=== PATIENT | female | born 1975 | race Caucasian/White ===

== ENCOUNTER 2025-05-02 09:54 | Emergency (ER) | payer MEDICARE, MEDICAID, SELFPAY ==
--- OUTSIDE RECORDS SUMMARY | 2025-04-30 11:35 | XMS_ITS | Encounter Summary ---
Author Organization [facility] Address [address] [place] [address] Care Team Providers Care Family Service Worker Name Role Phone Unavailable Primary Care Provider Unavailabl e Encounter Details Date Type Department Care Team (Late st Contact Info) Description 04/30/2025 11:35 AM EDT Lab Draw Station - [address] [place] [address] Screening for human immunodeficiency virus (Primary Dx); Posttraumatic stress disorder; History of cocaine dependence (CMS/HCC V24, CMS/HCC V28); Narcotic dependence, in remission (CMS/HCC V24, CMS/HCC V28); Abnormal results of liver function studies Social History Tobacco Use Types Packs/Day Years Used Date Smoking Tobacco: Never Assessed Comments Unknown Sex and Gender Information Value Date Recorded Sex Assigned at Female 04/30/2025 11:35 AM EDT Legal Sex Female 11:32 AM EDT Gender Identity Female 04/30/2025 11:35 AM EDT Sexual Orientation Lesbian or [place] 04/30/2025 11 :35 AM EDT documented as of this encounter Plan of Treatment Not on file documented as of this encounter Procedures Procedure Name Priority Date/Time Associated Diagnosis Comments BILIRUBIN DUPLICATE PROCEDURE TO ORDER Routine 04/30/2025 11:52 AM EDT Screening for human immunodeficiency virus Posttraumatic stress disorder History of cocaine dependence (CMS/HCC V24, CMS/HCC V28) Narcotic dependence, in remission (CMS/HCC V24, CMS/HCC V28) Abnormal results of liver function studies HIV 1, 2 ANTIBODY, P24 ANTIGEN WITH REFLEX TO DIFFERENTIATION Routine 04/30/2025 11:52 AM EDT Screening for human immunodeficiency virus Posttraumatic stress disorder History of cocaine dependence (CMS/HCC V24, CMS/HCC V28) Narcotic dependence, in remission (CMS/HCC V24, CMS/HCC V28) AST, ALT, BILIRUBIN ELR STATE REPORTABLES Routine 04/30/2025 11:52 AM EDT Screening for human immunodeficiency virus Posttraumatic stress disorder History of cocaine dependence (CMS/HCC V24, CMS/HCC V28) Narcotic dependence, in remission (CMS/HCC V24, CMS/HCC V28) Abnormal results of liver function studies THYROID STIMULATING HORMONE WITH REFLEX TO FREE T4 AND FREE T3 Routine 04/30/2025 11:52 AM EDT Screening for human immunodeficiency virus Posttraumatic stress disorder History of cocaine dependence (CMS/HCC V24, CMS/HCC V28) Narcotic dependence, in remission (CMS/HCC V24, CMS/HCC V28) FREE THYROXINE WITH REFLEX TO FREE TRIIODOTHYRONINE Routine 04/30/2025 11:52 AM EDT Screening for human immunodeficiency virus Posttraumatic stress disorder History of cocaine dependence (CMS/HCC V24, CMS/HCC V28) Narcotic dependence, in remission (CMS/HCC V24, CMS/HCC V28) HEPATITIS PANEL, ACUTE WITH REFLEX TO CONFIRMATION Routine 04/30/2025 11:52 AM EDT Screening for human immunodeficiency virus Posttraumatic stress disorder History of cocaine dependence (CMS/HCC V24, CMS/HCC V28) Narcotic dependence, in remission (CMS/HCC V24, CMS/HCC V28) Abnormal results of liver function studies COMPLETE BLOOD COUNT Routine 04/30/2025 11:52 AM EDT Screening for human immunodeficiency virus Posttraumatic stress disorder History of cocaine dependence (CMS/HCC V24, CMS/HCC V28) Narcotic dependence, in remission (CMS/HCC V24, CMS/HCC V28) TRIIODOTHYRONINE FREE Routine 04/30/2025 11:52 AM EDT Screening for human immunodeficiency virus Posttraumatic stress disorder History of cocaine dependence (CMS/HCC V24, CMS/HCC V28) Narcotic dependence, in remission (CMS/HCC V24, CMS/HCC V28) COMPREHENSIVE METABOLIC PANEL Routine 04/30/2025 11:52 AM EDT Screening for human immunodeficiency virus Posttraumatic stress disorder History of cocaine dependence (CMS/HCC V24, [facility] V28) Narcotic dependence, in remission ([facility] V24, [facility] V28) documented in this encounter Results * AST, ALT, Bilirubin ELR state reportables (04/30/2025 11:52 AM EDT) ALT (SGPT) 57 10 - 60 unit/L LAB CHEMISTRY METHOD 04/30/2025 9:49 PM EDT [facility] AST (SGOT) 36 10 - 42 unit/L LAB CHEMISTRY METHOD 04/30/2025 9:49 PM EDT [facility] Bilirubin, Direct 0.1 0.0 - 0.3 mg/dL LAB CHEMISTRY METHOD 04/30/2025 9:49 PM EDT [facility] Total Bilirubin 0.3 0.0 - 1.4 mg/dL LAB CHEMISTRY METHOD 04/30/2025 9:49 PM EDT [facility] Platelets 300 K/mcL LAB HEMETOLOGY METHOD 04/30/2025 9:49 PM EDT [facility] Blood Venous blood specimen / Unknown Venipuncture / Unknown 04/30/2025 11:52 AM EDT 04/30/2025 11:52 AM EDT us Trudi LOUISE LAB BLOOD ORDERABLES Final Resu lt [facility] [address] [place] [address], * Triiodothyronine free (04/30/2025 11:52 AM EDT) T3, Free 246 230 - 420 pcg/dL LAB CHEMISTRY METHOD 04/30/2025 10:02 PM EDT [facility] Blood Venous blood specimen / Unknown Venipuncture / Unknown 04/30/2025 11:52 AM EDT 04/30/2025 11:52 AM EDT Trudi LOUISE LAB BLOOD ORDERABLES Final Resu lt Performing Organization Address [facility]/ZIP Co de Phone Number [facility] [address] [place] [address], [place] [phone] * Free thyroxine with reflex to free triiodothyronine (04/30/2025 11:52 AM EDT) Pathologist [facility] Free T4 1.01 0.70 - 1.80 ng/dL LAB CHEMISTRY METHOD 04/30/2025 8:44 PM EDT [facility] Blood Venous blood specimen / Unknown Venipuncture / Unknown 04/30/2025 11:52 AM EDT 04/30/2025 11:52 AM EDT us Trudi LOUISE LAB BLOOD ORDERABLES Final Resu lt Performing Organization Address City/[facility] de Phone Number [facility] [address] [place] [address], [place] [phone] * Bilirubin duplicate procedure to order (04/30/2025 11:52 AM EDT) [facility] Total Bilirubin 0.3 0.0 - 1.4 mg/dL LAB CHEMISTRY METHOD 04/30/2025 7:57 PM EDT [facility] Bilirubin, Direct 0.1 0.0 - 0.3 mg/dL LAB CHEMISTRY METHOD 04/30/2025 7:57 PM EDT [facility] Bilirubin, Indirect 0.2 0.0 - 1.1 mg/dL LAB CHEMISTRY METHOD 04/30/2025 7:57 PM EDT [facility] Blood Venous blood specimen / Unknown Venipuncture / Unknown 04/30/2025 11:52 AM EDT 04/30/2025 11:52 AM EDT us Trudi LOUISE LAB BLOOD ORDERABLES Final Resu lt Performing Organization Address [facility]/ZIP Co de Phone Number [facility] [address] [place] [address], [place] [phone] * HIV 1,2 antibody, p24 antigen with reflex to differentiation (04/30/2025 11:52 AM EDT) [facility] HIV Combo AB/AG Negative Negative LAB CHEMISTRY METHOD 04/30/2025 5:21 PM EDT [facility] Blood Venous blood specimen / Unknown Venipuncture / Unknown 04/30/2025 11:52 AM EDT 04/30/2025 11:52 AM EDT Narrative [facility] - 04/30/2025 5:21 PM EDT This assay is a 4th generation assay allowing for earlier detection of HIV infection by detecting the presence of the HIV-1 p24 antigen as well as the traditional antibodies to HIV type 1 (including group O) and type 2. Use of a 4th generation assay is the current CDC recommendation for HIV screening. Trudi LOUISE LAB BLOOD ORDERABLES Final Resu lt Performing Organization Address [facility]/ZIP Co de Phone Number [facility] [address] [place] [address], [place] [phone] * (ABNORMAL) Complete blood count (04/30/2025 11:52 AM EDT) [facility] WBC 8.7 4.8 - 10.8 K/mcL LAB HEMETOLOGY METHOD 04/30/2025 2:17 PM EDT [facility] RBC 4.70 3.80 - 4.80 M/mcL LAB HEMETOLOGY METHOD 04/30/2025 2:17 PM EDT [facility] Hemoglobin 11.7 11.5 - 16.0 g/dL LAB HEMETOLOGY METHOD 04/30/2025 2:17 PM EDT [facility] Hematocrit 37.4 35.0 - 47.0 % LAB HEMETOLOGY METHOD 04/30/2025 2:17 PM EDT [facility] MCV 79.9 79.0 - 98.0 FL LAB HEMETOLOGY METHOD 04/30/2025 2:17 PM EDT [facility] MCH 25.0(L) 27.0 - 32.0 pcg LAB HEMETOLOGY METHOD 04/30/2025 2:17 PM EDT [facility] MCHC 31.3(L) 32.0 - 37.0 g/dL LAB HEMETOLOGY METHOD 04/30/2025 2:17 PM EDT [facility] RDW 15.4(H) 11.0 - 15.0 % LAB HEMETOLOGY METHOD 04/30/2025 2:17 PM EDT [facility] Platelets 300 130 - 400 K/mcL LAB HEMETOLOGY METHOD 04/30/2025 2:17 PM EDT [facility] MPV 10.2 7.0 - 11.0 FL LAB HEMETOLOGY METHOD 04/30/2025 2:17 PM EDT [facility] NRBC 0.0 <1.0 % LAB HEMETOLOGY METHOD 04/30/2025 2:17 PM EDT [facility] NRBC Absolute 0.00 <0.10 K/mcL LAB HEMETOLOGY METHOD 04/30/2025 2:17 PM EDT [facility] Blood Venous blood specimen / Unknown Venipuncture / Unknown 04/30/2025 11:52 AM EDT 04/30/2025 11:52 AM EDT us Trudi LOUISE LAB BLOOD ORDERABLES Final Resu lt [facility] [address] [place] [address], * (ABNORMAL) Thyroid stimulating hormone with reflex to free t4 and free t3 (04/30/2025 11:52 AM EDT) Pathologist [facility] TSH 4.06(H) 0.40 - 4.00 mcIU/mL LAB CHEMISTRY METHOD 04/30/2025 4:42 PM EDT [facility] Blood Venous blood specimen / Unknown Venipuncture / Unknown 04/30/2025 11:52 AM EDT 04/30/2025 11:52 AM EDT Trudi LOUISE LAB BLOOD ORDERABLES Final Resu lt Performing Organization Address City/[facility]/ZIP Co de Phone Number [facility] [address] [place] [address], [place] [phone] * (ABNORMAL) Hepatitis panel, acute with reflex to confirmation (04/30/2025 11:52 AM EDT) [facility] Hepatitis B Surface Ag Negative Negative LAB CHEMISTRY METHOD 04/30/2025 9:25 PM EDT [facility] Hepatitis A Antibody IgM Negative Negative LAB CHEMISTRY METHOD 04/30/2025 9:25 PM EDT [facility] Hep B Core IgM Negative Negative LAB CHEMISTRY METHOD 04/30/2025 9:25 PM EDT [facility] Hepatitis C Antibody Positive(A) Negative LAB CHEMISTRY METHOD 04/30/2025 9:25 PM EDT [facility] Comment:If confirmation of t his positive HCV Ab screening test is needed, please redraw and order HCV Viral Load. Note--> This test may not be added on due to different specimen requirements. Blood Venous blood specimen / Unknown Venipuncture / Unknown 04/30/2025 11:52 AM EDT 04/30/2025 11:52 AM EDT us Trudi LOUISE LAB BLOOD ORDERABLES Final Resu lt [facility] [address] [place] [address], [place] [phone] * (ABNORMAL) Comprehensive metabolic panel (04/30/2025 11:52 AM EDT) [facility] Signature Sodium 140 133 - 145 mmol/L LAB CHEMISTRY METHOD 04/30/2025 7:59 PM [facility] Potassium 4.8 3.5 - 5.5 mmol/L LAB CHEMISTRY METHOD 04/30/2025 7:59 PM [facility] Chloride 104 96 - 110 mmol/L LAB CHEMISTRY METHOD 04/30/2025 7:59 PM [facility] CO2 30 21 - 32 mmol/L LAB CHEMISTRY METHOD 04/30/2025 7:59 PM [facility] Anion Gap 6 3 - 11 LAB CHEMISTRY METHOD 04/30/2025 7:59 PM [facility] Glucose 110(H) 70 - 100 mg/dL LAB CHEMISTRY METHOD 04/30/2025 7:59 PM [facility] BUN 16 5 - 25 mg/dL LAB CHEMISTRY METHOD 04/30/2025 7:59 PM [facility] Creatinine 1.06 0.50 - 1.10 mg/dL LAB CHEMISTRY METHOD 04/30/2025 7:59 PM [facility] eGFR 65 >=60 mL/min/1. 73m2 LAB CHEMISTRY METHOD 04/30/2025 7:59 PM [facility] Comment:Calculation based on the Chronic Kidney Disease Epidemiology Collaboration (CKD-EPI) equation refit without adjustment for race. BUN/Creatinine Ratio 15.1 LAB CHEMISTRY METHOD 04/30/2025 7:59 PM [facility] Calcium 9.1 8.5 - 10.5 mg/dL LAB CHEMISTRY METHOD 04/30/2025 7:59 PM [facility] AST (SGOT) 36 10 - 42 unit/L LAB CHEMISTRY METHOD 04/30/2025 7:59 PM [facility] ALT (SGPT) 57 10 - 60 unit/L LAB CHEMISTRY METHOD 04/30/2025 7:59 PM EDT [facility] Alkaline Phosphatase 116 42 - 121 unit/L LAB CHEMISTRY METHOD 04/30/2025 7:59 PM EDT [facility] Total Protein 7.4 6.0 - 8.0 g/dL LAB CHEMISTRY METHOD 04/30/2025 7:59 PM EDT [facility] Albumin 3.6 3.2 - 5.0 g/dL LAB CHEMISTRY METHOD 04/30/2025 7:59 PM EDT [facility] Total Bilirubin 0.3 0.0 - 1.4 mg/dL LAB CHEMISTRY METHOD 04/30/2025 7:59 PM EDT [facility] Blood Venous blood specimen / Unknown Venipuncture / Unknown 04/30/2025 11:52 AM EDT 04/30/2025 11:52 AM EDT us Trudi LOUISE LAB BLOOD ORDERABLES Final Resu lt [facility] [address] [place] [address], documented in this encounter Visit Diagnoses Diagnosis Screening for human immunodeficiency virus- Primary Special screening examination for other specified viral diseases Posttraumatic stress disorder History of cocaine dependence (CMS/HCC V24, CMS/HCC V28) Narcotic dependence, in remission (CMS/HCC V24, CMS/HCC V28) Unspecified drug dependence, in remission Abnormal results of liver function studies Nonspecific abnormal results of liver function study documented in this encounter Orders Lab Orders Without Results Count Last Ordered D ate First Ordered Date HEPATIC FUNCTION PANEL 1 04/30/2025 documented in this encounter
--- NOTE | 2025-05-02 | ECG_ITS ---
Test Reason : etremity swelling Blood Pressure : */* mmHG Vent. Rate : 104 BPM Atrial Rate : 104 BPM P-R Int : 194 ms QRS Dur : 82 ms QT Int : 360 ms P-R-T Axes : 61 52 37 degrees QTcB Int : 473 ms Sinus tachycardia Otherwise normal ECG No previous ECGs available Referred By: Generic ED Physician Electronically Signed By: VIDYA MURILLO
--- NOTE | ~2025-05-02 | XR_ITS ---
EXAMINATION: XR CHEST 2 VIEWS HISTORY: swelling, weakness COMPARISON: There are no prior studies available for comparison. FINDINGS: PA and lateral views of the chest are submitted. The lungs are expanded and clear. There is no pleural effusion, pneumothorax, or pulmonary vascular congestion. The heart is normal in size. The bones are intact. XR/XR chest 2V IMPRESSION: Clear lungs. Electronically signed by: Jam Fulton MD 05/02/2025 10:48 AM EDT
[2025-05-02 10:02] VITALS: BP 158/90; PULSE 113; RESP 18; TEMP 36.8; O2SAT 92; BMI 48.1
--- NOTE | 2025-05-02 10:06 | ED_ITS ---
HPI - General Adult General Chief complaint: Extremity Problem Stated complaint: Swelling Legs Feet Hands Time Seen by Provider: 05/02/25 10:02 Source: patient Mode of arrival: ambulatory Limitations: no limitations History of Present Illness ED Provider: Mera Case PA-C HPI narrative: Patient is a 49 year old assigned female at with a history of edema - previously on lasix, hepatitis C - treated several years ago, bipolar disorder, seizure disorder, and hypothyroidism presenting to the emergency department today with right and swelling and bilateral feet swelling. Patient states that she was hospitalized for her bipolar disorder and was started on 4 days of lasix for her swelling but that was stopped upon discharge. Patient states that she had an echocardiogram while admitted for her bipolar disorder that was normal. Patient denies any other complaints at this time and states that she is staying at a intermediate house . Patient denies any other complaints at this time. Related Data Previous Rx's ?Medication ?Instructions ?Recorded furosemide 40 mg tablet (Lasix) 40 mg PO DAILY #30 tab s 05/02/25 Allergies Allergy/AdvReac Type Severity Reaction Status Date / Time ciprofloxacin Allergy Rash Verified 05/02/25 10:06 cephalexin (From Keflex) AdvReac Vomiting Verified 05/02/25 10:06 codeine AdvReac Vomiting Verified 05/02/25 10:06 Review of Systems 2 Constitutional: Constitutional: Reports as per HPI Eyes: Eyes: Reports as per HPI ENT: Reports as per HPI Cardiovascular: Cardiovascular: Reports as per HPI Respiratory: Respiratory: Reports as per HPI Gastrointestinal: Gastrointestinal: Reports as per HPI Genitourinary: Genitourinary: Reports as per HPI Musculoskeletal: Musculoskeletal: Reports as per HPI Integumentary/Breasts: Skin/Breast: Reports as per HPI Neurologic: Reports as per HPI Psychiatric: Psychiatric: Reports as per HPI Endocrine: Endocrine: Reports as per HPI Hematologic/Lymphatic: Hematologic/Lymphatic: Reports as per HPI Allergic/Immunologic: Allergic/Immunologic: Reports as per HPI PMF Past Medical History Attestation statement: The following information was validated with the patient. Source: old records reviewed and nursing notes reviewed Social History Social History Advance Directives: No Advance Directives Information Provided: No Do you have a plan to hurt others: No Plan Physical Exam ED Vital Signs: Vital Signs - 24 hr 05/02/25 10:02 Temperature 98.2 F Pulse Rate 113 H Respiratory Rate 18 Blood Pressure 158/90 H Pulse Oximetry 92 Oxygen Delivery Method Room Air BMI result Body Mass Index 48.1 Const General: cooperative, no acute distress, alert and awake Nutritional Appearance: well nourished Orientation/consciousness: patient oriented x3 HENMT Head: Yes normal to inspection and Yes atraumatic Ears: hearing grossly normal bilaterally and external ears normal General nose exam: Normal external nose present, no nasal discharge noted and no epistaxis Face and sinus: Yes normal facial exam, No abrasion and No laceration Mouth: Normal oral and palatal mucosa present, no drooling and no muffled voice Eyes General: appearance normal, both eyes and all related structures Periorbital: periorbital findings normal Eyelids: Yes eyelids normal Conjunctivae: conjunctivae normal Pupils: Equal, round and reactive pupils present EOM: EOMs intact bilaterally Neck Neck: Yes normal visual inspection and Yes full ROM Resp Effort & Inspection: normal respiratory effort and able to speak in complete sentences Neuro General: patient oriented x3, moves all extremities and CN's II-XI intact bilaterally Cranial nerves: Yes Equal, round and reactive pupils present Cognition (Neuro): normal cognition Extrem Other: edema present to the right dorsal hand and bilateral dorsal feet General: Yes full ROM and Yes capillary refill normal Psych Appearance: grossly normal Mental Status: mental status grossly normal Affect: normal affect Attitude: cooperative Thought process: Normal thought process present Thought content: Normal thought content present Insight: Good insight present (Psych) Medical Decision Making Medical Decision Making MDM Narrative: Patient is a 49 year old assigned female at with a history of edema - previously on lasix, hepatitis C - treated several years ago, bipolar disorder, seizure disorder, and hypothyroidism presenting to the emergency department today with right and swelling and bilateral feet swelling. Patient's physical exam was as noted in the physical exam portion of this note and consistent with edema. Patient's blood work showed very mildly elevated LFTs and evidence of old Hepatitis infection. Patient's EKG showed sinus tachycardia but was otherwise unremarkable. Patient was not tachycardic on my physical examination. Patient's chest x-ray showed no acute process. I explained my physical exam findings as well as all test results to the patient. I answered all questions asked by the patient. Patient's clinical presentation is most consistent with edema. Given the patient was previously on lasix prior to being discharged to her intermediate house, I will restart the patient on lasix. She was previously on 80mg, I will start her on 40mg. I stressed the importance of the patient taking her medication as directed (either prescribed or as the over the counter packaging recommends). I stressed the importance of the patient following up with her primary care provider. I stressed the importance of the patient returning to the emergency department immediately if her symptoms were to worsen or if she were to develop any dizziness, shortness of breath, difficulty breathing, chest pain, blurry vision, loss of vision, nausea, vomiting, abdominal pain, fever, chills, back pain, or any other complaints. Patient verbalized agreement and understanding with this treatment plan and discharge. Differential Diagnosis Differential Diagnoses: The differential diagnosis associated with the presentation includes Edema Swelling CHF / CHF exacerbation Liver disease Admission/Observation Consideration of admission/observation: Escalation of care including admission/observation considered Patient would have been admitted to the hospital had her work up had any findings where hospital admission was appropriate and her clinical presentation warranted hospital admission. Lab Data [facility] Lab Attestation statement: I reviewed the patient's lab results. My interpretation of these results are in the [facility] Rationale portion of this note. 05/02/25 10:51 05/02/25 10:51 Labs: Lab Results 05/02/25 Range/Units 10:51 WBC 7.7 (4.8-10.8) X10*3/uL RBC 4.53 (4.20-5.50) X10*6/uL Hgb 11.4 L (12.0-16.0) g/dl Hct 35.7 L (37.0-47.0) % MCV 78.8 L (80.0-98.0) fL MCH 25.2 L (27.0-33.0) pg MCHC 31.9 (31.0-35.0) g/dl RDW 15.3 (11.0-16.0) % Plt Count 256 (160-400) X10*3/uL MPV 9.7 (9.4-12.3) fL Immature Gran % (Auto) 0.4 (0.0-0.4) % Neut % (Auto) 62.7 (45-73) % Lymph % (Auto) 27.6 (20-40) % [place] % (Auto) 5.8 (2-11) % Eos % (Auto) 3.2 (0-4) % Baso % (Auto) 0.3 (0-2) % Lymph # (Auto) 2.1 (1.2-4.9) X10*3/uL [place] # (Auto) 0.5 (0.1-1.2) X10*3/uL Eos # (Auto) 0.3 (0.0-0.4) X10*3/uL Baso # (Auto) 0.0 (0.0-0.2) X10*3/uL Abs Immat Gran (auto) 0.03 (0.00-0.03) X10*3/uL Absolute Neuts (auto) 4.9 (2.0-8.3) x10*3/uL Absolute Nucleated RBC 0.000 (0.0-0.012) X10*3/uL Nucleated RBC % (auto) 0.0 (0.0-0.2) /100WBC Sodium 142 (135-145) mmol/L Potassium 4.5 (3.3-5.1) mmol/L Chloride 107 (96-108) mmol/L Carbon Dioxide 26 (22-29) mmol/L Anion Gap 14 (12-20) BUN 13 (9-16) mg/dL Creatinine 0.87 (0.5-1.4) mg/dL Estim Creat Clear Calc 105.5 Estimated GFR > 60 Random Glucose 95 (60-115) mg/dL Calcium 8.9 (8.4-10.2) mg/dL Magnesium 2.1 (1.6-2.6) mg/dL Total Bilirubin 0.4 (0.0-1.0) mg/dL AST 32 H (5-31) U/L ALT 37 H (0-31) U/L Alkaline Phosphatase 98 (39-117) U/L NT-Pro-B Natriuret Pep 64.3 (<300) pg/mL Total Protein 7.3 (6.5-8.0) g/dL Albumin 4.0 (3.5-5.0) g/dL TSH 4.21 H (0.32-4.0) uIU/mL Free T4 0.90 (0.71-1.85) ng/dL Hepatitis A IgM Ab Nonreactive (Nonreactive) Hep Bs Antigen Negative (Negative) Hep Bs Antibody REACTIVE (Nonreactive) Hep B Core Total Ab Nonreactive (Nonreactive) Hepatitis C Ab (EIA) Reactive H (Nonreactive) Independent Interpretation I performed an independent interpretation of an: EKG and Plain X-Ray Interpretation: My interpretation is in agreement with the radiologist's impression of this imaging study. L Reason for Exam: swelling, weakness EXAMINATION: XR CHEST 2 VIEWS HISTORY: swelling, weakness COMPARISON: There are no prior studies available for comparison. FINDINGS: PA and lateral views of the chest are submitted. The lungs are expanded and clear. There is no pleural effusion, pneumothorax, or pulmonary vascular congestion. The heart is normal in size. The bones are intact. XR/XR chest 2V IMPRESSION: Clear lungs. Electronically signed by: Jam Fulton MD 05/02/2025 10:48 AM EDT RP Dictated By: Jam Fulton MD Signed By: Electronically signed by Jam Fulton MD 05/02/25 1048 I independently interpreted this EKG and am in agreement with the below findings: Vent. Rate: 104 BPM Atrial Rate: 104 BPM P-R Int: 194 ms QRS Dur: 82 ms QT Int: 360 ms P-R-T Axes: 61 52 37 degrees QTcB Int: 473 ms Sinus tachycardia Otherwise normal ECG No previous ECGs available DD/ 1032 Radiology Impression Discussion of test interpretation with radiology: I have reviewed the radiologist's reading. Discharge Plan Discharge Clinical Impression: Edema Patient Disposition: Home, Self-Care Instructions: Edema (ED) Additional Instructions: Your work up today was reassuring there is no EMERGENT cause for your symptoms. I have prescribed HALF the dose of daily lasix you were on when previously hospitalized. It is crucial you follow up with a primary care provider about this. IF you are prescribed home medications and/or you are taking over the counter medications at home - it is very important you continue to do so as prescribed / directed unless told otherwise. Follow up with your primary care provider. Return to the emergency department immediately if your symptoms worsen or if you develop any numbness, tingling, dizziness, shortness of breath, difficulty breathing, chest pain, blurry vision, loss of vision, nausea, vomiting, abdominal pain, fever, chills, back pain, or any other complaints. If you do not have a primary care provider - call any of the below numbers to establish and follow up with a primary care provider. [facility] ([place]) [phone] [place] [address], [id number] [facility] ([address] [place]) [phone] [place] [address], [address] [facility], [address] [facility] ([address] [place]) [phone] [place] [address], [address] [facility], [address] [facility] ([place]) [phone] [place] [address] [address] [facility], [address] [facility] [phone] [address] [facility], [address] Please see the information below about our Patient Portal. If you are not yet enrolled in the [facility] Patient Portal, you will receive an enrollment email invitation following your visit to any [facility] setting. You may also self-enroll in the Patient Portal by visiting our website: [email or web address] The following information is required to access the Patient Portal: - Your [facility] Medical Record Number - Your personal home email address (must match what is in your electronic medical record, Registration staff can assist with this) - Name - Date of Capabilities of the Patient Portal: - Message some providers - View upcoming appointments - Access your health summary, medical history, and visit history - View current conditions and allergies - View procedure and lab results - View your medications, including guidelines, side effects, and precautions - Complete pre-appointment questionnaires requested by your provider - Ready summary reports of your office visits and procedures To access the Patient Portal Mobile Kar, follow these directions: - Search [employer] in the Kar Store or Google Play Store - Download the Kar - Search for [facility] - Enter your login/password Prescriptions: New furosemide [Lasix] 40 mg tablet 40 mg PO DAILY Qty: 30 0RF Discharge Date/Time: 05/02/25 12:26 Print Language: Ecuadorean
[2025-05-02 10:56] LABS: MANUAL DIFF FLAG NO
[2025-05-02 10:57] LABS: Hematocrit 35.7 % (37.0-47.0); Hemoglobin 11.4 g/dl (12.0-16.0); Imm Gran Abs Auto 0.03 X10*3/uL (0.00-0.03); Imm Gran Pct Auto 0.4 % (0.0-0.4); Lymphocytes Absolute Auto 2.1 X10*3/uL (1.2-4.9); Mean Corpuscular HGB Conc 31.9 g/dl (31.0-35.0); Mean Corpuscular Hemoglobin 25.2 pg (27.0-33.0); Mean Corpuscular Volume 78.8 fL (80.0-98.0); NRBC Abs Auto 0.000 X10*3/uL (0.0-0.012); NRBC Pct Auto 0.0 /100WBC (0.0-0.2); Platelet Count 256 X10*3/uL (160-400); Red Blood Count 4.53 X10*6/uL (4.20-5.50); White Blood Count 7.7 X10*3/uL (4.8-10.8)
[2025-05-02 11:12] LABS: Alanine Aminotransferase 37 U/L (0-31); Albumin Level 4.0 g/dL (3.5-5.0); Alkaline Phosphatase 98 U/L (39-117); Anion Gap 14 (12-20); Aspartate Amino Transferase 32 U/L (5-31); Blood Urea Nitrogen 13 mg/dL (9-16); Calcium 8.9 mg/dL (8.4-10.2); Carbon Dioxide 26 mmol/L (22-29); Chloride 107 mmol/L (96-108); Creatinine Clr Calc Pharmacy 105.5; Estimated Glomerular Filt Rate > 60; Magnesium 2.1 mg/dL (1.6-2.6); Potassium 4.5 mmol/L (3.3-5.1); Sodium 142 mmol/L (135-145); Total Protein 7.3 g/dL (6.5-8.0)
[2025-05-02 11:19] LABS: NT Pro B Type Natriuretic Pept 64.3 pg/mL (<300)
[2025-05-02 11:42] LABS: HBS Num1 63.82 mIU/mL (0-7.99); HBc Num1 0.12 S/CO (0.00-0.79); HBsAGNum1 0.38 S/CO (0.00-0.99); Hepatitis A Antibody IgM 0.25 Index (0-0.79); Hepatitis B Surface Antigen Negative (Negative); ~HepC Num1 12.00 S/CO (0.00-0.79); ~Hepatitis A Antibody IgM Nonreactive (Nonreactive); ~Hepatitis B Surface Antibody REACTIVE (Nonreactive); ~Hepatitis C Antibody Reactive (Nonreactive)
[2025-05-02 12:17] LABS: Free T4 (Free Thyroxine) 0.90 ng/dL (0.71-1.85)
--- OUTSIDE RECORDS SUMMARY | 2025-05-02 12:54 | XMS_ITS | Clinical Summary ---
Author Organization 175 [facility] ding Address [address] [place] [address] Phone Care Team Providers Care Equipment Tech Name Role Phone Physician, Pcp Unknown Primary Care Provider Ava vailable Encounters Date Type Department Care Team Description 04/30/2025 11:35 AM EDT Lab Draw Station - 175 [facility] [address] [address] Screening for human immunodeficiency virus (Primary Dx); Posttraumatic stress disorder; History of cocaine dependence (CMS/HCC V24, CMS/HCC V28); Narcotic dependence, in remission (CMS/HCC V24, CMS/HCC V28); Abnormal results of liver function studies from Last 3 Months Social History Tobacco Use Types Packs/Day Years Used Date Smoking Tobacco: Never Assessed Comments Unknown Sex and Gender Information Value Date Recorded Sex Assigned at Female 04/30/2025 11:35 AM EDT Legal Sex Female 11:32 AM EDT Gender Identity Female 04/30/2025 11:35 AM EDT Sexual Orientation Lesbian or [place] 04/30/2025 11 :35 AM EDT Plan of Treatment Health Maintenance Due Date Last Done Comments Breast Cancer Screening 1977 Colorectal Cancer Screening: Colonoscopy 1977 DTaP,Tdap,and Td Vaccines (1 - Tdap) 1996 Hepatitis A Vaccines (1 of 2 - Risk 2-dose series) 1996 Hepatitis B Vaccines (1 of 3 - 19+ 3-dose series) 1996 Cervical Cancer Screening: P ap Smear 1998 Depression Screening 07/03/2024 COVID-19 Vaccine (1 - 2023-2 5 season) 2025 Influenza Vaccine (#1) 2025 Medicare Annual Wellness Visit 04/30/2025 Social Influencers of Health Screening 04/30/2025 RSV Immunization Adult Patie nts (1 - 1-dose 75+ series) 2052 HIV Screening Completed 04/30/2025 Hepatitis C Screening Completed 04/30/2025 HIB Vaccines Aged Out No longer eligi ble based on patient's age to complete this topic HPV Vaccines Aged Out No longer eligi ble based on patient's age to complete this topic IPV Vaccines Aged Out No longer eligi ble based on patient's age to complete this topic MMR Vaccines Aged Out No longer eligi ble based on patient's age to complete this topic Meningococcal ACWY Vaccine Aged Out N o longer eligible based on patient's age to complete this topic Meningococcal B Vaccine Aged Out No l onger eligible based on patient's age to complete this topic Pneumococcal Vaccine: Pediat rics (0 to 5 Years) and At-Risk Patients (6 to 49 Years) Aged Out No longer eligi ble based on patient's age to complete this topic RSV Immunization Patients Un chay 20 months Aged Out No longer eligible b ased on patient's age to complete this topic Varicella Vaccines Aged Out No longer eligible based on patient's age to complete this topic Procedures Procedure Name Priority Date/Time Associated Diagnosis Comments AST, ALT, BILIRUBIN ELR STATE REPORTABLES Routine 04/30/2025 11:52 AM EDT Screening for human immunodeficiency virus Posttraumatic stress disorder History of cocaine dependence (CMS/HCC V24, CMS/HCC V28) Narcotic dependence, in remission (CMS/HCC V24, CMS/HCC V28) Abnormal results of liver function studies TRIIODOTHYRONINE FREE Routine 04/30/2025 11:52 AM EDT [...] dependence, in remission (CMS/HCC V24, CMS/HCC V28) BILIRUBIN DUPLICATE PROCEDURE TO ORDER Routine 04/30/2025 11:52 AM EDT Screening for human immunodeficiency virus Posttraumatic stress disorder History of cocaine dependence (CMS/HCC V24, CMS/HCC V28) Narcotic dependence, in remission (CMS/HCC V24, CMS/HCC V28) Abnormal results of liver function studies COMPREHENSIVE METABOLIC PANEL Routine 04/30/2025 11:52 AM [...] dependence, in remission (CMS/HCC V24, CMS/HCC V28) COMPLETE BLOOD COUNT Routine 04/30/2025 11:52 AM EDT Screening for human immunodeficiency virus Posttraumatic stress disorder History of cocaine dependence (CMS/HCC V24, CMS/HCC V28) Narcotic dependence, in remission (CMS/HCC V24, CMS/HCC V28) HIV 1, 2 ANTIBODY, P24 ANTIGEN WITH REFLEX TO DIFFERENTIATION Routine 04/30/2025 11:52 AM EDT Screening for human immunodeficiency virus Posttraumatic stress disorder History of cocaine dependence (CMS/HCC V24, CMS/HCC V28) Narcotic dependence, in remission (CMS/HCC V24, CMS/HCC V28) from Last 3 Months Results * Bilirubin duplicate procedure to order (04/30/2025 11:52 AM EDT) Total Bilirubin 0.3 0.0 - 1.4 mg/dL LAB CHEMISTRY METHOD 04/30/2025 7:57 PM EDT [facility] Bilirubin, Direct 0.1 0.0 - 0.3 mg/dL LAB CHEMISTRY METHOD 04/30/2025 7:57 PM EDT [facility] Bilirubin, Indirect 0.2 0.0 - 1.1 mg/dL LAB CHEMISTRY METHOD 04/30/2025 7:57 PM EDT [facility] Blood Venous blood specimen / Unknown Venipuncture / Unknown 04/30/2025 11:52 AM EDT 04/30/2025 11:52 AM EDT us Trudi LOUISE LAB BLOOD ORDERABLES Final Resu lt Performing Organization Address [facility]/ZIP Co de Phone Number [facility] [address] [place] [address], [place] [phone] * HIV 1,2 antibody, p24 antigen with reflex to differentiation (04/30/2025 11:52 AM EDT) HIV Combo AB/AG Negative Negative LAB CHEMISTRY METHOD 04/30/2025 5:21 PM EDT [facility] Blood Venous blood specimen / Unknown Venipuncture / Unknown 04/30/2025 11:52 AM EDT 04/30/2025 11:52 AM EDT Narrative [facility] - 04/30/2025 5:21 PM EDT [...] ORDERABLES Final Resu lt Performing Organization Address City/[facility]/ZIP Co de Phone Number [facility] [address] [place] [address], [place] [phone] * AST, ALT, Bilirubin ELR state reportables (04/30/2025 11:52 AM EDT) ALT (SGPT) 57 10 - 60 unit/L LAB CHEMISTRY METHOD 04/30/2025 9:49 PM EDT [facility] AST (SGOT) 36 10 - 42 unit/L LAB CHEMISTRY METHOD 04/30/2025 9:49 PM EDT [facility] Bilirubin, Direct 0.1 0.0 - 0.3 mg/dL LAB CHEMISTRY METHOD 04/30/2025 9:49 PM EDT [facility] Total Bilirubin 0.3 0.0 - 1.4 mg/dL LAB CHEMISTRY METHOD 04/30/2025 9:49 PM EDT [facility] Platelets 300 K/mcL LAB HEMETOLOGY METHOD 04/30/2025 9:49 PM EDT [facility] Blood Venous blood specimen / Unknown Venipuncture / Unknown 04/30/2025 11:52 AM EDT 04/30/2025 11:52 AM EDT Trudi LOUISE LAB BLOOD ORDERABLES Final Resu lt Performing Organization Address City/[facility] Co de Phone Number [facility] [address] [place] [address], * (ABNORMAL) Thyroid stimulating hormone with reflex to free t4 and free t3 (04/30/2025 11:52 AM EDT) TSH 4.06(H) 0.40 - 4.00 mcIU/mL LAB CHEMISTRY METHOD 04/30/2025 4:42 PM EDT [facility] Blood Venous blood specimen / Unknown Venipuncture / Unknown 04/30/2025 11:52 AM EDT 04/30/2025 11:52 AM EDT Trudi LOUISE LAB BLOOD ORDERABLES Final Resu lt [facility] [address] [place] [address], [place] [phone] * Free thyroxine with reflex to free triiodothyronine (04/30/2025 11:52 AM EDT) Free T4 1.01 0.70 - 1.80 ng/dL LAB CHEMISTRY METHOD 04/30/2025 8:44 PM EDT [facility] Blood Venous blood specimen / Unknown Venipuncture / Unknown 04/30/2025 11:52 AM EDT 04/30/2025 11:52 AM EDT Trudi LOUISE LAB BLOOD ORDERABLES Final Resu lt Performing Organization Address [facility] Co de Phone Number [facility] [address] [place] [address], [place] [phone] * (ABNORMAL) Hepatitis panel, acute with reflex to confirmation (04/30/2025 11:52 AM EDT) [facility] Hepatitis B Surface Ag Negative Negative LAB CHEMISTRY METHOD 04/30/2025 9:25 PM EDT [facility] Hepatitis A Antibody IgM Negative Negative LAB CHEMISTRY METHOD 04/30/2025 9:25 PM EDT [facility] Hep B Core IgM Negative Negative LAB CHEMISTRY METHOD 04/30/2025 9:25 PM EDT [facility] Hepatitis C Antibody Positive(A) Negative LAB CHEMISTRY METHOD 04/30/2025 9:25 PM EDT [facility] Comment:If confirmation of t his positive HCV Ab screening test is needed, please redraw and order HCV Viral Load. Note--> This test may not be added on due to different specimen requirements. Blood Venous blood specimen / Unknown Venipuncture / Unknown 04/30/2025 11:52 AM EDT 04/30/2025 11:52 AM EDT us Trudi LOUISE LAB BLOOD ORDERABLES Final Resu lt [facility] [address] [place] [address], * (ABNORMAL) Complete blood count (04/30/2025 11:52 AM EDT) WBC 8.7 4.8 - 10.8 K/mcL LAB HEMETOLOGY METHOD 04/30/2025 2:17 PM EDT [facility] RBC 4.70 3.80 - 4.80 M/mcL LAB HEMETOLOGY METHOD 04/30/2025 2:17 PM EDT [facility] Hemoglobin 11.7 11.5 - 16.0 g/dL LAB HEMETOLOGY METHOD 04/30/2025 2:17 PM EDT [facility] Hematocrit 37.4 35.0 - 47.0 % LAB HEMETOLOGY METHOD 04/30/2025 2:17 PM EDT [facility] MCV 79.9 79.0 - 98.0 FL LAB HEMETOLOGY METHOD 04/30/2025 2:17 PM EDT [facility] MCH 25.0(L) 27.0 - 32.0 pcg LAB HEMETOLOGY METHOD 04/30/2025 2:17 PM EDT [facility] MCHC 31.3(L) 32.0 - 37.0 g/dL LAB HEMETOLOGY METHOD 04/30/2025 2:17 PM EDT [facility] RDW 15.4(H) 11.0 - 15.0 % LAB HEMETOLOGY METHOD 04/30/2025 2:17 PM EDT [facility] Platelets 300 130 - 400 K/mcL LAB HEMETOLOGY METHOD 04/30/2025 2:17 PM EDT [facility] MPV 10.2 7.0 - 11.0 FL LAB HEMETOLOGY METHOD 04/30/2025 2:17 PM EDT [facility] NRBC 0.0 <1.0 % LAB HEMETOLOGY METHOD 04/30/2025 2:17 PM EDT [facility] NRBC Absolute 0.00 <0.10 K/mcL LAB HEMETOLOGY METHOD 04/30/2025 2:17 PM EDT [facility] Blood Venous blood specimen / Unknown Venipuncture / Unknown 04/30/2025 11:52 AM EDT 04/30/2025 11:52 AM EDT Trudi LOUISE LAB BLOOD ORDERABLES Final Resu lt Performing Organization Address City/[facility]/ZIP Co de Phone Number [facility] [address] [place] [address], [place] [phone] * Triiodothyronine free (04/30/2025 11:52 AM EDT) T3, Free 246 230 - 420 pcg/dL LAB CHEMISTRY METHOD 04/30/2025 10:02 PM EDT [facility] Blood Venous blood specimen / Unknown Venipuncture / Unknown 04/30/2025 11:52 AM EDT 04/30/2025 11:52 AM EDT Trudi LOUISE LAB BLOOD ORDERABLES Final Resu lt [facility] [address] [place] [address], [place] [phone] * (ABNORMAL) Comprehensive metabolic panel (04/30/2025 11:52 AM EDT) Sodium 140 133 - 145 mmol/L LAB CHEMISTRY METHOD 04/30/2025 7:59 PM EDT [facility] Potassium 4.8 3.5 - 5.5 mmol/L LAB CHEMISTRY METHOD 04/30/2025 7:59 PM [facility] Chloride 104 96 - 110 mmol/L LAB CHEMISTRY METHOD 04/30/2025 7:59 PM [facility] CO2 30 21 - 32 mmol/L LAB CHEMISTRY METHOD 04/30/2025 7:59 PM [facility] Anion Gap 6 3 - 11 LAB CHEMISTRY METHOD 04/30/2025 7:59 PM [facility] Glucose 110(H) 70 - 100 mg/dL LAB CHEMISTRY METHOD 04/30/2025 7:59 PM [facility] BUN 16 5 - 25 mg/dL LAB CHEMISTRY METHOD 04/30/2025 7:59 PM [facility] Creatinine 1.06 0.50 - 1.10 mg/dL LAB CHEMISTRY METHOD 04/30/2025 7:59 PM [facility] eGFR 65 >=60 mL/min/1. 73m2 LAB CHEMISTRY METHOD 04/30/2025 7:59 PM [facility] Comment:Calculation based on the Chronic Kidney Disease Epidemiology Collaboration (CKD-EPI) equation refit without adjustment for race. BUN/Creatinine Ratio 15.1 LAB CHEMISTRY METHOD 04/30/2025 7:59 PM [facility] Calcium 9.1 8.5 - 10.5 mg/dL LAB CHEMISTRY METHOD 04/30/2025 7:59 PM [facility] AST (SGOT) 36 10 - 42 unit/L LAB CHEMISTRY METHOD 04/30/2025 7:59 PM [facility] ALT (SGPT) 57 10 - 60 unit/L LAB CHEMISTRY METHOD 04/30/2025 7:59 PM [facility] Alkaline Phosphatase 116 42 - 121 unit/L LAB CHEMISTRY METHOD 04/30/2025 7:59 PM [facility] Total Protein 7.4 6.0 - 8.0 g/dL LAB CHEMISTRY METHOD 04/30/2025 7:59 PM EDT [facility] Albumin 3.6 3.2 - 5.0 g/dL LAB CHEMISTRY METHOD 04/30/2025 7:59 PM EDT [facility] Total Bilirubin 0.3 0.0 - 1.4 mg/dL LAB CHEMISTRY METHOD 04/30/2025 7:59 PM EDT [facility] Blood Venous blood specimen / Unknown Venipuncture / Unknown 04/30/2025 11:52 AM EDT 04/30/2025 11:52 AM EDT us Trudi LOUISE LAB BLOOD ORDERABLES Final Resu lt [facility] ([facility]) [facility] [address] [place] [address], [place] [phone] from Last 3 Months Insurance MEDICARE MEDICARE MEDICAID - [place] Care Teams Equipment Tech Relationship Specialty Start Date End Date Physician, Pcp Unknown PCP - General 05/01/25
== END 2025-05-02 12:26 | disposition home or self-care (01) ==
PROVIDERS: Physician Assistant Medical; Emergency Provider Emergency Medicine
DX: R60.9 Edema, unspecified (principal); R53.1 Weakness; M79.89 Other specified soft tissue disorders; G40.909 Epilepsy, unspecified, not intractable, without status epilepticus; E03.9 Hypothyroidism, unspecified; F31.9 Bipolar disorder, unspecified; Z86.19 Personal history of other infectious and parasitic diseases
CPT/HCPCS: 36415; 71046; 80053; 83735; 83880; 84439; 84443; 85025; 86704; 86706; 86709; 86803; 87340; 93005; 99283

== ENCOUNTER → 2025-05-02 10:28 | Outpatient (BNV) | payer MEDICAID, SELFPAY | PROVIDERS: Visit Provider Radiology Diagnostic Radiology | DX: R60.9 Edema, unspecified (principal); R53.1 Weakness | CPT/HCPCS: 71046 ==

== ENCOUNTER → 2025-05-02 10:32 | Outpatient (BNV) | payer MEDICARE, MEDICAID, SELFPAY | PROVIDERS: Emergency Provider Emergency Medicine; Visit Provider Internal Medicine | DX: R00.0 Tachycardia, unspecified (principal) | CPT/HCPCS: 93010 ==